=== PATIENT | male | born 1930 | race Caucasian/White ===

== ENCOUNTER 2017-07-22 18:29 | Emergency (ER) | payer MEDICARE ==
[~2017-07-22] VITALS: Ht 162.6 cm; Wt 62.3 kg
[2017-07-22 18:30] VITALS: BP 140/66
[2017-07-22] MEDS ORDERED: SIMV40TA2 PO (18:44)
[2017-07-22] MEDS ORDERED: FURO40TA2 (18:44)
[2017-07-22] MEDS ORDERED: POTA10TA16 (18:44)
[2017-07-22] MEDS ORDERED: CLOP75TA2 (18:44)
[2017-07-22] MEDS ORDERED: ELIQ5TAB (18:44)
[2017-07-22] MEDS ORDERED: LEVO75TA4 PO (18:45)
[2017-07-22] MEDS ORDERED: [UNRECOGNIZED DRUG - REMARK] (18:45)
[2017-07-22] MEDS ORDERED: POLY1POW4 PO (18:45)
[2017-07-22] MEDS ORDERED: TAMSULOSIN (18:45)
== END 2017-07-22 20:10 | disposition home or self-care (01) ==
LOC: M ED 18:29
DX: L76.22 Postprocedural hemorrhage of skin and subcutaneous tissue following other procedure (principal); Z98.890 Other specified postprocedural states; I25.10 Atherosclerotic heart disease of native coronary artery without angina pectoris; I48.91 Unspecified atrial fibrillation; Z86.73 Personal history of transient ischemic attack (TIA), and cerebral infarction without residual deficits; Z95.810 Presence of automatic (implantable) cardiac defibrillator; Z79.899 Other long term (current) drug therapy; Z79.01 Long term (current) use of anticoagulants

== ENCOUNTER → 2019-03-08 | Outpatient (REF) | payer MEDICARE ==
[~2019-03-08] MED LIST: CLOP75TA2; ELIQ5TAB; FURO40TA2; LEVO75TA4 PO; POLY33503 PO; POTA10TA16; SIMV40TA2 PO; TAMSULOSIN; [UNRECOGNIZED DRUG - REMARK]
== END ==
LOC: M LAB LCGH 12:27
PROVIDERS: ATTEND Nurse Practitioner Family
DX: C44.311 Basal cell carcinoma of skin of nose (principal)

== ENCOUNTER → 2019-09-07 | Outpatient (REF) | payer MEDICARE ==
[~2019-09-07] MED LIST changes: -SIMV40TA2 PO; +SIMV40TA20 PO
== END ==
LOC: M LAB LCGH 15:42
PROVIDERS: ATTEND Nurse Practitioner Family
DX: C44.519 Basal cell carcinoma of skin of other part of trunk (principal); L57.0 Actinic keratosis